=== PATIENT | male | born 1975 | race Caucasian/White ===

== ENCOUNTER 2019-05-15 14:09 | Emergency (ER) | payer BC ==
[2019-05-15 14:13] VITALS: BP 154/88
--- NOTE | 2019-05-15 14:16 | EDM.PDOC ---
ED HPI GENERAL MEDICAL PROBLEM - General Chief Complaint: Laceration Stated Complaint: Cut on cheek Time Seen by Provider: 05/15/19 14:10 Source of Information: Reports: Patient, Family (), Old Records (Tylenol 650 mg by mouth every 4 hours and/or OTC ibuprofen 2-3 tabs by mouth every 6 hours with food as directed./needed. You may stagger these medications for 48- 72 hours only, which essentially means that you are receiving a pain medication about every 2 hours.) History Limitations: Reports: No Limitations - History of Present Illness INITIAL COMMENTS - FREE TEXT/NARRATIVE: The patient was brought to the emergency room via private automobile by his for evaluation of a small left facial laceration, which occurred while the patient was shaving at home about 1.5 hours prior to arrival. Despite applied pressure the bleeding refused to stop with no history of foreign body, other injury, etc. Patient is on a low-dose baby aspirin with no other treatment prior to arrival. The patient denies any chest pain/pressure, heart flutter, dizziness, orthostasis, orthopnea, diaphoresis, paresthesias, recent decreased exercise tolerance, or any other anginal-type symptoms. No recent history of abdominal pain, heartburn, nausea, diarrhea, melena, gross hematochezia, or any food intolerance, including fatty foods, etc.. The patient also denies any recent fever, cough, wheezing, dyspnea, etc.. He denies any pain or discomfort. Onset: Today, Sudden Onset Date: 05/15/19 Onset Time: 13:00 Duration: Constant Location: Reports: Face. Denies: Head, Neck, Chest, Abdomen, Back, Radiates to Quality: Reports: Sharp Severity: Mild Improves with: Reports: None Worsens with: Reports: None Context: Reports: Trauma (As above). Denies: Sick Contact Associated Symptoms: Denies: Confusion, Chest Pain, Cough, Diaphoresis, Fever/ Chills, Headaches, Loss of Appetite, Malaise, Nausea/Vomiting, Rash, Shortness of Breath, Syncope, Weakness Treatments [employer]: Reports: Other (see below) (As above) - Related Data Allergies Allergy/AdvReac Type Severity Reaction Status Date / Time No Known Allergies Allergy Verified 05/15/19 14:16 Home Meds: Home Meds Aspirin [Halfprin] 81 mg PO BRK 09/12/16 [History] Cetirizine HCl [Allergy Relief] 10 mg PO DAILY 09/12/16 [History] Lisinopril [Zestril] 20 mg PO DAILY 09/12/16 [History] Ascorbic Acid/Ascorbate Sodium [Vitamin C 500 mg Wafer] 1,000 mg PO DAILY [History] Past Medical History HEENT History: Reports: Allergic Rhinitis, Impaired Vision, Other (See Below). Denies: Hard of Hearing Other HEENT History: Patient wears glasses. Cardiovascular History: Reports: Hypertension, Other (See Below). Denies: CAD, High Cholesterol, [place] Other Cardiovascular History: He doesn't know his cholesterol status. Respiratory History: Reports: Asthma, Bronchitis, Recurrent Gastrointestinal History: Reports: None Genitourinary History: Reports: None Musculoskeletal History: Reports: None. Denies: Fracture Neurological History: Reports: None. Denies: Concussion, Head Trauma Psychiatric History: Reports: Addiction, Other (See Below) Other Psychiatric History: Previous history of probable alcohol abuse with ER evaluation in this facility on 09/12/16 and significant complications of hyponatremia and hypokalemia. He did have outpatient alcohol treatment classes but no inpatient therapy at that time. Additional DWI in 2006. Endocrine/Metabolic History: Reports: Obesity/BMI 30+. Denies: Diabetes, Type I , Diabetes, Type II, Hypothyroidism, IDDM Hematologic History: Reports: None Immunologic History: Reports: None Oncologic (Cancer) History: Reports: None Dermatologic History: Reports: None - Past Surgical History Head Surgeries/Procedures: Reports: None HEENT Surgical History: Reports: None Cardiovascular Surgical History: Reports: None Respiratory Surgical History: Reports: None GI Surgical History: Reports: None Endocrine Surgical History: Reports: None Neurological Surgical History: Reports: None Musculoskeletal Surgical History: Reports: None Oncologic Surgical History: Reports: None Dermatological Surgical History: Reports: None Social & Family History - Tobacco Use Smoking Status *Q: Current Every Day Smoker Tobacco Use Within Last Twelve Months: Snuff/Dip Years of Tobacco use: 25 Packs/Tins Daily: 0.5 Packs/Tins Daily Comment: Started chewing tobacco use at age 18 with maximum use of 0.75 cans per day. Used Tobacco, but Quit: No Smoking Cessation Information Provided To Patient: Yes Second Hand Smoke Exposure: No Second Hand Smoke Education Provided: No - Caffeine Use Caffeine Use: Reports: Coffee (1 Cup per day) - Alcohol Use Alcohol Use History: Yes Days Per Week of Alcohol Use: 7 Number of Drinks Per Day: 8 Total Drinks Per Week: 56 Total Drinks Per Week Comment: Usually beer. Note alcohol history as above. Date of Last Drink: 05/14/19 Alcohol Use in Last Twelve Months: Yes Alcohol Use Frequency: Binges - Recreational Drug Use Recreational Drug Use: No Drug Use in Last 12 Months: No Recreational Drug Type: Denies: Amphetamines (Speed), Cocaine, Heroin, Inhalants (Glues, Solvents, Aerosols), LSD (Acid), Marijuana/Hashish, Methamphetamine, Morphine, Oxycodone - Living Situation & Occupation Living situation: Reports: (Second in 2013 with 2 children from this spouse and his having 2 children from another relationship.), (2006 from first with no children from that relationship), with Family Occupation: Employed ([employer]) ED ROS GENERAL - Review of Systems Review Of Systems: ROS reveals no pertinent complaints other than HPI. ED EXAM, SKIN/RASH Exam: See Below Exam Limited By: No Limitations General Appearance: Alert, WD/WN, No Apparent Distress Head: Other (1 mm bleeding laceration over the inferior left cheek/perioral region with no foreign body or significant localized tenderness). No: Facial Swelling, Facial Tenderness, Sinus Tenderness Neck: Normal Inspection, Supple, Non-Tender, Full Range of Motion. No: Lymphadenopathy (L), Lymphadenopathy (R), Thyromegaly Respiratory/Chest: No Respiratory Distress, Lungs Clear, Normal Breath Sounds, No Accessory Muscle Use, Chest Non-Tender. No: Pleural Rub, Retractions Cardiovascular: Normal Peripheral Pulses, Regular Rate, Rhythm, No Edema, No Gallop, No JVD, No Murmur, No Rub. No: Gallop/S3, Gallop/S4, Friction Rub Peripheral Pulses: 2+: Radial (L), Radial (R) GI/Abdominal: Normal Bowel Sounds, Soft, Non-Tender, No Organomegaly, No Distention, No Abnormal Bruit, No Mass, Other (Obese). No: Guarding (Male) Exam: Deferred Rectal (Males) Exam: Deferred Back Exam: Normal Inspection, Full Range of Motion. No: CVA Tenderness (L), CVA Tenderness (R), Muscle Spasm Extremities: Normal Inspection, Normal Range of Motion, Non-Tender, No Pedal Edema, Normal Capillary Refill. No: Elias's Sign Neurological: Alert, Oriented, CN II-XII Intact, Normal Cognition, Normal Gait, No Motor/Sensory Deficits Skin: Warm, Normal Color, No Rash, Wound/Incision (As above). No: Ecchymosis, Petechiae Location, Skin: Face Characteristics: Other (As above) Associated features: No: Warmth, Tenderness, Lymphangitis Lymphatic: No Adenopathy ED SKIN PROCEDURES - Laceration/Wound Repair Left Face Lac/Wound length In cm: 0.1 Appearance: Superficial, Clean Distal NVT: Neuro & Vascular Intact, No Tendon Injury Anesthetic Type: Other (None) Skin Prep: Isopropyl Alcohol (Alcohol) Saline Irrigation (cc's): 0 Exploration/Debridement/Repair: Wound Explored, In a Bloodless Field, Explored to Base, No Foreign Material Found Closed with: Dermabond (With additional silver nitrate sticks 2) Drain Placement: No Tetanus Status Addressed: Yes Complications: No Course - Vital Signs Last Recorded V/S: Last Vital Signs Temp Pulse 98 05/15/19 14:10 Resp 18 05/15/19 14:10 BP 154/88 H 05/15/19 14:10 Pulse Ox 100 05/15/19 14:10 Vital Signs - 24 hr 05/15/19 14:10 Pulse, 98 Peripheral [ Right Pulse Oximetry] Respiratory 18 Rate Blood Pressure 154/88 H [Right Upper Arm] O2 Sat by Pulse 100 Oximetry - Orders/Labs/Meds Orders: Active Orders 24 hr Category Date Time Status Vaccines to be Administered [RC] PER UNIT ROUTINE Care 05/15/19 14:16 Obtain Past Medical Record [OM.PC] Routine Oth 05/15/19 14:16 Active Labs: None Meds: Medications Discontinued Medications Generic Name Dose Route Start Last Admin Trade Name Freq PRN Reason Stop Dose Admin Diphtheria/Tetanus/Acell Pertussis 0.5 ml 05/15/19 14:16 05/15/19 14:37 Adacel IM 05/15/19 14:17 0.5 ml .ONCE ONE Administration - Radiology Interpretation Free Text/Narrative:: None Departure - Departure Time of Disposition: 14:55 Disposition: Home, Self-Care 01 Condition: Good Clinical Impression: Laceration, Tobacco abuse counseling, Asthma Hypertension Qualifiers: Hypertension type: essential hypertension Qualified Code(s): I10 - Essential ( primary) hypertension - Discharge Information *PRESCRIPTION DRUG MONITORING PROGRAM REVIEWED*: Not Applicable *COPY OF PRESCRIPTION DRUG MONITORING REPORT IN PATIENT ANNE: Not Applicable Instructions: Health Risks of Smoking, Laceration Care, Adult, [id number], Stitches, Brina, or Adhesive Wound Closure, [id number] Forms: ED Department Discharge Additional Instructions: 1. Follow up with your regular provider in 10-14 days as needed, if symptoms persist. Bring these discharge instructions with you to that visit.. 2. No aspirin, ibuprofen, Aleve, or other NSAIDs for 1 week secondary to today' s injury. Discuss with your regular provider whether your current low-dose aspirin should be discontinued on a permanent basis secondary to current studies and your absence of known coronary artery disease. 3. Work excuse- See Form 4. Tylenol 650 mg by mouth every 4 hours when necessary as directed. 5. Keep the laceration site clean and dry for 24-48 hours as discussed with pressure to the applied, if bleeding recurs 6. Thereafter, Antibacterial soap wash/soak with subsequent antibacterial dressing such as Neosporin, etc. as directed 2 times per day until the wound site completely heals. Keep the area clean and dry with activity restrictions as discussed. Never use hydrogen peroxide for wound care. 7. Stop all tobacco use LAXMI as directed/per provided information and consider contacting Quit LIne, etc.. 8. Please remember that we are ALWAYS here for you and want to answer any questions you may have. Feel free to call the hospital any time and we call you back LAXMI. 9. Immediately after this visit verify that your cellular telephone's voicemail has been activated and is empty. Also verify that your home telephone 's answering machine is operating properly and has space to receive messages. Note that it is sometimes necessary for us to be able to contact you at a later date to discuss your medical care. 10. Consider decreasing your current alcohol use secondary to your hypertension , etc. - Problem List & Annotations (1) Laceration SNOMED Code(s): 416847437 Code(s): VXC1831 - Status: Acute Priority: High Onset Date: 05/15/19 Annotation/Comment:: Excellent results with laceration repair as above, although 2 additional silver nitrate sticks were required to stop the bleeding. DTaP given with patient's last TdAP on 10/19/11, which was confirmed by the ER nurse today through [facility]. Wound care discussed. [employer]cat work excuse completed. (2) Tobacco abuse counseling SNOMED Code(s): 309013014, 875697461, 961181737 Code(s): Z71.6 - TOBACCO ABUSE COUNSELING Status: Chronic Priority: Medium Annotation/Comment:: Tobacco cessation strongly encouraged with information provided at discharge. He was also counseled on the use of Nicorette , during this evaluation by this provider. Note history of alcohol use as above , although no current intoxication. (3) Hypertension SNOMED Code(s): 30296082 Code(s): I10 - ESSENTIAL (PRIMARY) HYPERTENSION Status: Chronic Priority : Medium Annotation/Comment:: Blood pressure somewhat elevated in the emergency room. Continue to observe closely by his regular provider. Qualifiers: Hypertension type: essential hypertension Qualified Code(s): I10 - Essential (primary) hypertension - Problem List Review Problem List Initiated/Reviewed/Updated: Yes - My Orders Last 24 Hours: My Active Orders 05/15/19 14:16 Vaccines to be Administered [RC] PER UNIT ROUTINE Obtain Past Medical Record [OM.PC] Routine - Assessment/Plan Last 24 Hours: My Active Orders 05/15/19 14:16 Vaccines to be Administered [RC] PER UNIT ROUTINE Obtain Past Medical Record [OM.PC] Routine Assessment:: As above Plan: As above. Extensive precautions were given to the patient and his , who are in agreement with the treatment plan. See Patient Instructions for further treatment and plan.
[2019-05-15] MEDS: Diphtheria,Pertussis(Acell),Tetanus Vaccine 0.5 ML SDV IM ONE (14:37)
== END 2019-05-15 14:55 | disposition home or self-care (01) ==
LOC: LL.ED 14:09
DX: S01.412A Laceration without foreign body of left cheek and temporomandibular area, initial encounter (principal); I10 Essential (primary) hypertension; Z23 Encounter for immunization; Z76.0 Encounter for issue of repeat prescription; F17.210 Nicotine dependence, cigarettes, uncomplicated; J45.909 Unspecified asthma, uncomplicated; Z79.82 Long term (current) use of aspirin; Z79.899 Other long term (current) drug therapy; X58.XXXA Exposure to other specified factors, initial encounter
CPT/HCPCS: 12011; 90471; 90715; 99282